=== PATIENT | female | born 1965 | race Caucasian/White ===

== ENCOUNTER 2017-08-29 10:11 | Emergency (ER) | payer OTHER ==
[2017-08-29 11:57] VITALS: BP 131/59
== END 2017-08-29 12:30 | disposition home or self-care (01) ==
LOC: ED 10:11
DX: M79.671 Pain in right foot (principal); I10 Essential (primary) hypertension; E11.9 Type 2 diabetes mellitus without complications; E78.5 Hyperlipidemia, unspecified
CPT/HCPCS: Q0092